=== PATIENT | male | born 1960 | race American Indian/Alaskan Native ===

== ENCOUNTER 2018-11-27 10:31 | Day surgery (SDC) | payer OTHER ==
[~2018-11-27 10:31] MED LIST: NACL 0.9% 1000 ML 1,000 ML IV SCH
[2018-11-27] MEDS ORDERED: DIPRIVAN 10 MG/ML IV ONE ×3 (11:02→13:05)
[2018-11-27] MEDS ORDERED: WATER FOR IRRIG STERILE IR ONE (12:03)
[2018-11-27] MEDS ORDERED: WATER FOR IRRIG STERILE ONE (12:03)
--- NOTE | 2018-11-27 12:05 | Anesthesia Day of Surgery ---
Anesthesia Day of Surgery - Day of Surgery Patient Examined: Yes Patient H&P Reviewed: Yes Patient is NPO: Yes Beta Blockers: No Cardiac Clearance: No Pulmonary Clearance: No Parish's Test: N/A
--- NOTE | 2018-11-27 12:06 | Anesthesia Consultation ---
Anesthesia Consult and Med Hx - Airway ROM Head & Neck: Adequate Mental/Hyoid Distance: Adequate Mallampati Class: Class II Intubation Access Assessment: Probably Good - Pulmonary Exam CTA: Yes - Cardiac Exam Cardiac Exam: RRR - Pre-Operative Health Status ASA Pre-Surgery Classification: ASA2 Proposed Anesthetic Plan: General, MAC - Pulmonary Hx Smoking: Yes - Cardiovascular System Hx Hypertension: Yes - Central Nervous System Hx Back Pain: Yes
--- NOTE | 2018-11-27 13:14 | Discharge Summary ---
Short Stay Discharge Plan Activity: advance as tolerated Weight Bearing Status: Weight Bear as Tolerated Diet: regular Additional Instructions: Post Sedation D/C Instructions When you return home you may resume your regular diet unless otherwise directed. -Go directly home from the hospital and rest quietly. You may resume normal activities tomorrow. -Do NOT drive, return to work, operate any machinery or make any important personal or business decisions today. -Do NOT drink any alcohol or take nerve or sleeping drugs. They add to the effects of the medicine still present in your body. No Aspirin or Aspirin products for 10 days. Follow up with: [facility] [Primary Care Provider] - 7 Days
--- NOTE | 2018-11-27 13:14 | Operative Report ---
Operative Report Operative Report: Date of procedure: 04/07/2018 Procedure: Colonoscopy with submucosal injection, multiple snare polypectomies, multiple cold snare polypectomies, multiple hot biopsy polypectomies, multiple polyp ablations. Attending physician: Jermaine Mathis MD Coordinate Measuring Machine Technician: Jermaine Mathis MD Indication: Patient is a 58-year-old male who presents for colonoscopy, because of positive stool FIT test. A colonoscopy serves to evaluate patient so that treatment may be directed based on the findings. Consent: Informed consent was obtained after advising the patient and family regarding nature of this procedure, its indications, potential benefits as well as possible complications including but not limited to bleeding perforation and adverse reaction to medication, infection as well as other cardiopulmonary complications. An informed written and verbal consent was then obtained after due opportunity was provided for questions and answers. Monitoring: Patient was monitored continuously with pulse oximetry and electrocardiographic recordings as well as blood pressure recordings. Vital signs remained stable throughout this procedure with no untoward events. Preoperative assessment: Patient was assessed immediately prior to this procedure for capacity to tolerate monitored anesthesia care and moderate sedat ion as well as general anesthesia. Patient's ASA classification is 2, Mallampati class is 2, Hyomental distance is 3. Instrument: Olympus video colonoscope Medications: Propofol given intravenously in divided doses. For details please refer to anesthesia records. Description of procedure: Patient was placed in the left lateral decubitus position after achieving sedation, a digital rectal examination was performed following which the colonoscope was introduced into the anal verge and advanced to the cecum which was identified by the cecal valve, the appendiceal orifice, as well as by the cecal strap and direct transillumination. The colonoscope was subsequently withdrawn with careful inspection of all mucosal surfaces. Patient tolerated this procedure well and was subsequently taken to the recovery room. The following findings were noted. Findings: The preparation was fair. The patient had densely adherent thick liquid stool in the cecum and ascending colon and proximal transverse colon. The rest of the transverse colon was normal. Patient had a few diverticula in the descending colon. In the sigmoid colon, patient had multiple polyps in multiple different configurations. There were multiple diminutive flat polyps multiple diminutive sessile polyps. These were removed by hot biopsy polypectomy and retrieved. There were also multiple diminutive flat polyps that were ablated. Patient also had sessile polyps measuring 6-8 mm. In all that were about 9 of these. These were removed by cold snare polypectomy. There were also 2 polyps measuring proximal 1.5 cm there were flat. These were elevated with submucosal injection of saline and removed by snare polypectomy. There were a few scattered diverticula seen in sigmoid colon. Patient had numerous diminutive polyps in the rectum. These were removed by hot biopsy polypectomy and also ablation. In all there were about 15 of these polyps seen in the rectum. On the retroflexed view at the anal verge, patient had internal hemorrhoids. Some of the rectal polyps were also ablated. Impression: Multiple sigmoid colon polyps status post hot biopsy polypectomy, snare polypectomy, cold snare polypectomy, submucosal medical injection and snare polypectomy and also polyp ablation. Multiple rectal polyps status post hot biopsy polypectomy and ablation. Mild Diverticular disease of the colon. Internal hemorrhoids. Plan: Follow pathology report High-fiber diet. Repeat colonoscopy in 6-12 months.
[2018-11-27 13:27] VITALS: BP 127/87
--- NOTE | 2018-11-27 13:40 | Post Anesthesia Evaluation ---
- Post Anesthesia Evaluation Patient Participated: Yes Airway Patent: Yes Stable Respiratory Function: Yes Nausea/Vomiting: No Temp > 96.8F: Yes Pain Manageable: Yes Adequeate Hydration: Yes Anesthesia Complications: No Block Receding Appropriately: Not Applicable Patient on Ventilator: No
[2018-11-27] MEDS ORDERED: XYLOCAINE MPF 2% ONE (15:00)
== END 2018-11-27 10:32 | disposition home or self-care (01) ==
LOC: GIO 10:31
PROVIDERS: ATTEND Internal Medicine Gastroenterology
DX: D12.5 Benign neoplasm of sigmoid colon (principal); K62.1 Rectal polyp; K57.30 Diverticulosis of large intestine without perforation or abscess without bleeding; I10 Essential (primary) hypertension; Z79.82 Long term (current) use of aspirin; Z79.899 Other long term (current) drug therapy; Z98.890 Other specified postprocedural states
CPT/HCPCS: 45381; 45384; 45385; 45388; 88305; J2704; J7030